=== PATIENT | male | born 1975 | race African-American/Black ===

== ENCOUNTER 2019-12-16 08:46 | Emergency (ER) | payer OTHER ==
[~2019-12-16] VITALS: Ht 170.2 cm; Wt 92.5 kg
[2019-12-16 09:15] LABS: BASOPHILS 0.8 % (0.0-2.0); HEMATOCRIT 39.4 % (42.0-52.0); HEMOGLOBIN 12.9 gm/dL (14.0-18.0); LYMPHOCYTES 29.3 % (24.0-44.0); MCH 28.8 pg (26.0-34.0); MCHC 32.8 g/dL (28.0-37.0); MCV 87.6 fL (80.0-100.0); PLATELET COUNT 300 thou/uL (150-400); POLYS 61.9 % (36.0-66.0); RBC 4.49 mil/uL (4.50-6.00); RDW 14.5 % (10.5-14.5); WBC 6.5 thou/uL (4.0-11.0)
[2019-12-16 09:22] LABS: ANION GAP 7 mmol/L (7-16); BUN 15 mg/dL (7-18); CALCIUM 8.4 mg/dL (8.5-10.1); CHLORIDE 103 mmol/L (98-107); CO2 28 mmol/L (21-32); CREATININE 0.7 mg/dL (0.7-1.3); GLUCOSE 96 mg/dL (74-106); POTASSIUM 4.4 mmol/L (3.5-5.1); SODIUM 138 mmol/L (136-145)
[2019-12-16] MEDS ORDERED: ABILIFY10 MG PO (09:27)
[2019-12-16] MEDS ORDERED: HALDOL5 MG/1 ML IM (09:28)
[2019-12-16 09:32] LABS: ALBUMIN 3.8 g/dL (3.4-5.0); MAGNESIUM 1.7 mg/dL (1.8-2.4); SGOT 19 U/L (15-37); SGPT 21 U/L (30-65); TOTAL BILIRUBIN 0.4 mg/dL (0.2-1.0); TOTAL PROTEIN 7.1 g/dL (6.4-8.2); TROPONIN-I <0.06 ng/mL (<0.06)
[2019-12-16 10:33] LABS: URINE BILIRUBIN NEGATIVE (Negative); URINE BLOOD NEGATIVE (Negative); URINE CLARITY CLEAR; URINE COLOR YELLOW; URINE GLUCOSE-RANDOM* NEGATIVE (Negative); URINE KETONES NEGATIVE (Negative); URINE LEUKOCYTES-REFLEX NEGATIVE (Negative); URINE NITRITE-REFLEX NEGATIVE (Negative); URINE PROTEIN (DIPSTICK) NEGATIVE (Negative); URINE SPECIFIC GRAVITY 1.025 (1.005-1.035); URINE UROBILINOGEN 0.2 E.U./dl (0.2-1.0)
[2019-12-16 10:41] LABS: AMP/METHAMP Negative (Negative); BARBITURATES Negative (Negative); BENZODIAZEPINES Negative (Negative); COCAINE Negative (Negative); METHADONE Negative (Negative); OPIATES Negative (Negative); PCP Negative (Negative)
[2019-12-16 11:53] VITALS: BP 108/81
--- NOTE | 2019-12-18 08:12 | EKG ---
[facility] [place] [address] ELECTROCARDIOGRAM REPORT Name: MIRAJUHI Room #: [facility]P [facility]der[facility] [id number] Admission: 12/16/19 Attend Phys: Discharge: 12/16/19 Date of : 77 Report #: [id number] THIS REPORT FOR: cc: FAM - Family physician unknown FAM - Family physician unknown Apollo Mckeon MD [facility] THIS REPORT FOR: //name// [facility] ED Test Date: 2019-12-16 Test Time: 09:20:14 Pat Name: JUHI MEYERS Department: Room: Gender: Leakage Tester: sarthak : 1975 Requested By: Luis Angel Taylor Order Number: [id number] MD: Apollo Mckeon Measurements Intervals [place] Rate: 80 P: 50 [place]: 164 QRS: 22 QRSD: 85 T: 23 QT: 378 QTc: 436 Interpretive Statements Sinus rhythm Normal tracing No previous ECG available for comparison Electronically Signed On 12-18-2019 8:12:03 CDT by Apollo Mckeon [email or web address] <ELECTRONICALLY SIGNED> By: Apollo Mckeon MD, [facility] 12/18/19811 9 9 Apollo Mckeon MD, FACC /EPI
== END 2019-12-16 11:56 | disposition home or self-care (01) ==
LOC: ER 08:46
PROVIDERS: Emergency Medicine
DX: R06.02 Shortness of breath (principal); Z20.828 Contact with and (suspected) exposure to other viral communicable diseases; B34.9 Viral infection, unspecified; E66.9 Obesity, unspecified; F17.210 Nicotine dependence, cigarettes, uncomplicated; Z59.0 Homelessness; Z79.899 Other long term (current) drug therapy